=== PATIENT | female | born 1965 | race Caucasian/White ===

== ENCOUNTER → 2016-08-16 | Outpatient (CLI) | payer OTHER | END | disposition home or self-care (01) | LOC: NUC 07:49 | DX: K21.9 Gastro-esophageal reflux disease without esophagitis (principal) | CPT/HCPCS: 78227; A9537; J2805 ==

== ENCOUNTER 2017-08-02 05:42 | Day surgery (SDC) | payer OTHER ==
[~2017-08-02] VITALS: Ht 167.6 cm; Wt 68.2 kg
[~2017-08-02 05:42] MED LIST: ALEVE220 M2 PO; ASCORBIC ACID100 MG PO; IMITREX50 MG PO; SYNTHROID75 MCG PO; VITAMIN D2000 UNIT PO; VIVELLE-DOT0.0375 MG TD
[2017-08-02] MEDS ORDERED: VITAMIN D2000 UNI1 PO (06:35)
[2017-08-02] MEDS ORDERED: VITAMIN C500 M6 PO (06:36)
[2017-08-02 06:37] VITALS: BP 124/74
[2017-08-02 11:12] VITALS: BP 130/62
[2017-08-02 12:15] VITALS: BP 118/59
== END 2017-08-02 12:37 | disposition home or self-care (01) ==
LOC: SDC 05:42
PROC: 0RB30ZZ Excision of Cervical Vertebral Disc, Open Approach (ICD-10-PCS; principal; 2017-08-02)
DX: M50.122 Cervical disc disorder at C5-C6 level with radiculopathy (principal); E03.9 Hypothyroidism, unspecified
CPT/HCPCS: 72040; 76000; C1713; J0131; J0330; J0690; J1100; J1885; J2250; J2405; J3010